=== PATIENT | female | born 1965 | race Caucasian/White ===

== ENCOUNTER 2024-11-18 09:09 | Outpatient (CLI) | payer BC, SELFPAY ==
--- NOTE | ~2024-11-18 | CT_ITS ---
CLINICAL INDICATION: Possible renal calculi COMPARISON: None. TECHNIQUE: Multiple contiguous axial images of the abdomen and pelvis were performed without the admi nistration of intravenous contrast The dose-length product (DLP) was 874.01 mGy-cm. Automated exposure control and iterative reconstruction technique were employed. FINDINGS/OBSERVATIONS: Visualized lower thorax: The bilateral lung bases are clear. The heart is of normal size, without pericardial effusion. Liver: The liver demonstrates homogeneously decreased attenuation and is enlarged measuring 23 cm in longitu dinal dimension. Gallbladder and biliary system: The gallbladder is only minimally distended, and otherwise unremarkable. Pancreas: Limited evaluation of the pancreas secondary to the lack of intravenous contrast. Spleen: The spleen demonstrates homogeneous attenuation and is not enlarged measuring 10 cm in longitudinal d imension. Kidneys: The bilateral kidneys are without hydronephrosis or obstructing renal calculi. The contour of the bilateral kidneys is abnormal. The right kidney demonstrates a rounded focus of de creased attenuation within the upper pole measuring 3.7 x 3.7 x 3.8 cm. Bulky calcification within the lower pole parenchyma measuring 8 mm. 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 Adrenal glands: Unremarkable. Gastrointestinal tract: Colonic diverticulosis without surrounding inflammatory change. Fecal stasis within the colon. Appendix: The air-filled appendix is of normal caliber (axial series, images 115-132). Vasculature: Unremarkable. Lymph nodes: No pathologically enlarged or morphologically suspicious lymph nodes within the retroperitoneum or at the root of the mesentery. Pelvic structures: The bladder is minimally distended, and otherwise unremarkable. The uterus is anteverted and anteflexed, and otherwise unremarkable. Body wall and musculoskeletal: Mild degenerative disease within the lumbosacral spine. IMPRESSION: Fatty infiltration of an enlarged liver. Abnormal contour of the bilateral kidneys for which focused ultrasound is recommended (versus contras t-enhanced CT or MRI with renal mass protocol). Reviewed, dictated and finalized at location A. GE MECH[employer]IC IMPRESSION: Fatty infiltration of an enlarged liver. Abnormal contour of the bilateral kidneys for which focused ultrasound is recom mended (versus contrast-enhanced CT or MRI with renal mass protocol).
--- NOTE | ~2024-11-18 | XR_ITS ---
Exam: Abdomen 1V HISTORY: RIGHT KIDNEY STONE COMPARISON: Reference is made to a CT examination of the abdomen and pelvis, performed the same day. TECHNIQUE: Supine images of the abdomen and pelvis. FINDINGS: Bowel gas pattern is non-obstructive. There is no free air or deep sulci. No pathologic calcifications are seen. Lung bases are unremarkable. Bones and soft tissues are unremarkable. IMPRESSION: Nonspecific, nonobstructive bowel gas pattern. Reviewed, dictated and finalized at location A. OR [employer]
== END 2024-11-18 09:10 | disposition home or self-care (01) ==
LOC: GOSHIMG 09:10
PROVIDERS: PCP Family Medicine; Visit Provider Urology
DX: N20.0 Calculus of kidney (principal); K76.0 Fatty (change of) liver, not elsewhere classified
CPT/HCPCS: 74018; 74176